=== PATIENT | female | born 1975 | race Caucasian/White ===

== ENCOUNTER 2021-10-13 17:57 | Emergency (ER) | payer BC ==
[~2021-10-13] VITALS: Ht 177.8 cm; Wt 77.1 kg
[2021-10-13 18:00] VITALS: BP_SYST 159
--- NOTE | 2021-10-13 18:15 | NUR ---
TRIAGED AND BROUGHT BACK TO BED #8, REPORT GIVEN TO JASS
--- NOTE | 2021-10-13 18:20 | NUR ---
PT CAME IN FROM HOME C/O RIGHT NECK/TRAPEZIUS SINCE SUNDAY, REPORTS SPASM TYPE PAIN 09/04, HAS TAKEN OTC MOTRIN AND RX NORCO AT HOME WITHOUT RELIEF. PT IS AMBULATORY, AAOX4, TACHYCARDIC UPON ARRIVAL IN 130S, ANXIOUS AND TEARFUL
--- NOTE | 2021-10-13 18:25 | NUR ---
ER DR. CASTRO AT THE BEDSIDE EXAMINING PT
[2021-10-13] MEDS ORDERED: KETOROLAC TROMETHAMINE 60 MG/2 ML VIAL IM ONE (18:30)
--- NOTE | 2021-10-13 18:56 | NUR ---
PT SITTING UP IN [facility], TALKING ON CELL PHONE COMFORTABLY, NO DISTRESS
--- NOTE | 2021-10-13 19:11 | NUR ---
REPORT GIVEN TO ANISHA ELLIOTT FOR CONTINUING CARE
[2021-10-13] MEDS ORDERED: fentaNYL CITRATE/PF 100 MCG/2 ML AMP IM ONE (19:30)
--- NOTE | 2021-10-13 19:55 | NUR ---
Pt taken to Radiology in stable condition
--- NOTE | 2021-10-13 20:02 | NUR ---
Pt back from Radiology, well tolerated
[2021-10-13] MEDS ORDERED: HYDR-3917 PO (20:22)
[2021-10-13 20:35] VITALS: BP_SYST 159
--- NOTE | 2021-10-13 20:35 | NUR ---
Patient given written and verbal discharge instructions and verbalizes understanding. ER MD discussed with patient the results and treatment provided. Patient in stable condition. ID arm band removed. Rx of [place] given. Patient educated on pain management and to follow up with PMD. Pain Scale 0/10 Opportunity for questions provided and answered. Medication side effect fact sheet provided
[2021-10-13] MEDS ORDERED: [UNRECOGNIZED DRUG - CODE] PO (20:47)
== END 2021-10-13 20:35 | disposition home or self-care (01) ==
LOC: SED 17:57
DX: S16.1XXA Strain of muscle, fascia and tendon at neck level, initial encounter (principal); X50.0XXA Overexertion from strenuous movement or load, initial encounter; Y93.89 Activity, other specified; Y92.89 Other specified places as the place of occurrence of the external cause; Y99.8 Other external cause status
CPT/HCPCS: 72125; 76376; 96372; 99284; J1885; J3010